=== PATIENT | male | born 2000 | race American Indian/Alaskan Native ===

== ENCOUNTER 2018-04-22 21:49 | Emergency (ER) | payer SELFPAY ==
[2018-04-22] MEDS ORDERED: HYDROGEN PEROXIDE ONE (22:06)
[2018-04-22] MEDS ORDERED: NACL 0.9% 500 ML IR ONE (22:06)
[2018-04-22] MEDS ORDERED: NACL 0.9% IR ONE (22:24)
[2018-04-22] MEDS ORDERED: HYDROGEN PEROXIDE TP ONE (22:27)
[2018-04-22] MEDS ORDERED: PERCOCET 5/325 ONE (23:57)
[2018-04-23] MEDS ORDERED: PERCOCET 5/325 PO ONE (00:02)
[2018-04-23] MEDS ORDERED: THERMAZENE 50 GRAM TP ONE (00:09)
[2018-04-23] MEDS ORDERED: XYLOCAINE TOPICAL 2% 5ML TP ONE (00:09)
[2018-04-23] MEDS ORDERED: BOOSTRIX IM ONE (00:11)
[2018-04-23] MEDS ORDERED: XYLOCAINE TOPICAL 2% 5ML ONE (00:26)
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
[2018-04-23 01:22] VITALS: BP 131/63
== END 2018-04-23 01:23 | disposition home or self-care (01) ==
LOC: ED 21:49
DX: S60.512A Abrasion of left hand, initial encounter (principal); S60.511A Abrasion of right hand, initial encounter; S50.812A Abrasion of left forearm, initial encounter; S50.811A Abrasion of right forearm, initial encounter; F17.200 Nicotine dependence, unspecified, uncomplicated; Z91.010 Allergy to peanuts; V27.4XXA Motorcycle driver injured in collision with fixed or stationary object in traffic accident, initial encounter; Y93.55 Activity, bike riding; Y92.098 Other place in other non-institutional residence as the place of occurrence of the external cause; Y99.8 Other external cause status
CPT/HCPCS: 90471; 90715; 99282

== ENCOUNTER 2018-04-25 10:43 | Emergency (ER) | payer SELFPAY ==
[2018-04-25 11:13] VITALS: BP 120/60
--- NOTE | 2018-04-25 13:15 | Emergency Department Report ---
ED Male HPI - General Chief complaint: Urogenital-Male Stated complaint: SIDE IN PAIN VERY BAD Time Seen by Provider: 04/25/18 13:14 Source: patient Mode of arrival: Ambulatory Limitations: No Limitations - History of Present Illness Initial comments: This is a 17-year-old male here report that he was exposed to STD and he was sent to the emergency room by his mom to get STD shot. He said he was exposed to chlamydia and the person that he had unprotected sex told them that she had chlamydia. Denies any abdominal back pain. Denies any urinary burning, frequency or urgency. Denies any fever or chills. Positive penile discharge MD Complaint: penile discharge Onset/Timin -: days(s) Severity scale (0 -10): 0 new sexual partner discharge. denies: swelling, mass, rash, urinary retention, blood in urine, fever, nausea/vomiting, other - Related Data Sexually active: Yes Previous Rx's Medication Instructions Recorded Last Taken Type Cephalexin [Keflex] 500 mg PO Q8HR #30 cap 04/23/18 Unknown Rx Silver Sulfadiazine [Silvadene] 50 gm TP BID #1 tub 04/23/18 Unknown Rx traMADol [Ultram] 50 mg PO Q8HR PRN 5 Days #15 tablet 04/23/18 Unknown Rx Allergies Allergy/AdvReac Type Severity Reaction Status Date / Time peanut Allergy Unknown Verified 04/22/18 22:23 ED Review of Systems ROS: Stated complaint: SIDE IN PAIN VERY BAD Other details as noted in HPI Constitutional: denies: chills, fever ENT: denies: throat pain Respiratory: denies: cough, shortness of breath, wheezing Cardiovascular: denies: chest pain, palpitations Gastrointestinal: denies: abdominal pain, nausea, vomiting Genitourinary: discharge. denies: urgency, dysuria, frequency, hematuria, testicular pain Musculoskeletal: denies: back pain, joint swelling, arthralgia, myalgia Skin: denies: rash, lesions Neurological: denies: headache, weakness, paresthesias ED Past Medical Hx - Past Medical History Previous Medical History?: No - Surgical History Past Surgical History?: No - Family History Family history: no significant - Social History Smoking Status: Current Every Day Smoker Substance Use Type: Marijuana - Medications Home Medications: Home Medications Medication Instructions Recorded Confirmed Last Taken Type Cephalexin [Keflex] 500 mg PO Q8HR #30 cap 04/23/18 Unknown Rx Silver Sulfadiazine [Silvadene] 50 gm TP BID #1 tub 04/23/18 Unknown Rx traMADol [Ultram] 50 mg PO Q8HR PRN 5 Days #15 tablet 04/23/18 Unknown Rx ED Physical Exam - General Limitations: No Limitations General appearance: alert, in no apparent distress - Head Head exam: Present: atraumatic, normocephalic, normal inspection - Eye Eye exam: Present: normal appearance, PERRL, EOMI Pupils: Present: normal accommodation - ENT ENT exam: Present: normal exam, normal orophraynx, mucous membranes moist - Neck Neck exam: Present: normal inspection, full ROM. Absent: tenderness, lymphadenopathy - Respiratory Respiratory exam: Present: normal lung sounds bilaterally. Absent: respiratory distress, chest wall tenderness - Cardiovascular Cardiovascular Exam: Present: regular rate, normal rhythm, normal heart sounds - GI/Abdominal GI/Abdominal exam: Present: soft, normal bowel sounds. Absent: tenderness, rigid - Extremities Exam Extremities exam: Present: normal inspection, full ROM, normal capillary refill. Absent: tenderness, pedal edema, joint swelling, calf tenderness - Back Exam Back exam: Present: normal inspection, full ROM. Absent: tenderness, CVA tenderness (R), CVA tenderness (L), muscle spasm, paraspinal tenderness, vertebral tenderness - Neurological Exam Neurological exam: Present: alert, oriented X3, normal gait - Psychiatric Psychiatric exam: Present: normal affect, normal mood - Skin Skin exam: Present: warm, dry, intact, normal color. Absent: rash ED Course Vital Signs 04/25/18 11:11 Temperature 97.5 F L Pulse Rate 65 Respiratory 18 Rate Blood Pressure 120/60 O2 Sat by Pulse 100 Oximetry - Reevaluation(s) Reevaluation #1: 04/25/18 13:20 Patient received Rocephin 250 mg IM to cover the gonorrhea. Received azithromycin 1 g by mouth to cover chlamydia. Patient had no adverse reaction from medication ED Medical Decision Making - Medical Decision Making ED course: This is a 17-year-old male here to be treated for penile discharge and said he was exposed to chlamydia. He's not having any abdominal pain, urinary burning or frequency or urgency. He reports the first he got Chlamydia from got treated. Patient examined by myself and physical findings is normal. Patient treated for gonorrhea and chlamydia in emergency room and had no adverse reaction from medication. Penile discharge with exposure to chlamydia-before meals treated with Rocephin and Flagyl 50 mg IM for gonorrhea and azithromycin 1 g by mouth for chlamydia I encouraged to practice safe sex and to wear a condom when he is having sexual activity. He needs to go to [facility] department to get STD test in 7-10 days and not to have any sexual activity for the next 2 weeks. He voiced understanding and Pt discharged home in stable condition, vital signs are stable he is a febrile and discharged home to follow-up as discussed. Critical care attestation.: If time is entered above; I have spent that time in minutes in the direct care of this critically ill patient, excluding procedure time. ED Disposition Clinical Impression: Penile discharge, Concern about STD in male without diagnosis Disposition: DC- TO HOME OR SELFCARE Is pt being admited?: No Does the pt Need Aspirin: No Condition: Stable Instructions: Safe Sex (ED), Sexually Transmitted Diseases (ED) Additional Instructions: Please practice safe sex Follow-up with [facility] or [facility] Department in 7-10 days for STD testing. Refrain from having sexual activity for 2 weeks Referrals: [facility] [Outside] - 7-10 days [facility] [Outside] - 7-10 days Forms: Work/School Release Form(ED)
[2018-04-25] MEDS ORDERED: ZITHROMAX PO ONE (13:16)
[2018-04-25] MEDS ORDERED: XYLOCAINE 1% MPF 5 mL INFILTRATI ONE (13:16)
[2018-04-25] MEDS ORDERED: ROCEPHIN IM ONE (13:16)
== END 2018-04-25 13:46 | disposition home or self-care (01) ==
LOC: ED 10:43
DX: R36.9 Urethral discharge, unspecified (principal); F17.200 Nicotine dependence, unspecified, uncomplicated; F12.10 Cannabis abuse, uncomplicated; Z91.010 Allergy to peanuts
CPT/HCPCS: 96372; 99282; J0696